=== PATIENT | female | born 1975 | race American Indian/Alaskan Native ===

== ENCOUNTER 2018-03-27 11:01 | Outpatient (CLI) | payer OTHER ==
--- NOTE | 2018-03-27 13:04 | Mammography Report ---
BILATERAL MAMMOGRAM: FINDINGS: Baseline examination. The breast tissue is heterogeneously dense, which could obscure detection of small masses (approximately 50%-75% glandular). No mass, distortion, suspicious calcification, or skin change is seen. CAD was utilized. IMPRESSION: Negative mammogram. There is no mammographic evidence of malignancy. RECOMMENDATION: Follow-up per ACS guidelines. BI-RADS CATEGORY: 1 = Negative ACR BI-RADS MAMMOGRAPHIC CODES: 0 = Needs additional imaging evaluation; 1 = Negative; 2 = Benign; 3 = Probably benign; 4 = Suspicious; 5 = Malignant; 6 = Known biopsy-proven malignancy COMMENT: 1. Dense breast tissue, i.e., adenosis, fibrocystic changes, etc., may obscure an underlying neoplasm. 2. Approximately 10% of cancers are not detected with mammography. 3. A negative mammography report should not delay biopsy if a clinically suspicious mass is present. COMMENT: Patient follow-up letters are generated in [employer].
== END 2018-03-27 11:02 | disposition home or self-care (01) ==
LOC: MAMMO 11:01
PROVIDERS: ATTEND Nurse Practitioner Family
DX: Z12.31 Encounter for screening mammogram for malignant neoplasm of breast (principal)
CPT/HCPCS: 77067

== ENCOUNTER 2019-06-10 09:45 | Outpatient (CLI) | payer OTHER ==
--- NOTE | 2019-06-10 14:39 | Mammography Report ---
DIGITAL SCREENING MAMMOGRAM WITH CAD, 06/10/2019 INDICATION: Routine screening mammography. TECHNIQUE: Digital bilateral 2D mammography was obtained in the craniocaudal and mediolateral obliq ue projections. This examination was interpreted with the benefit of Computer-Aided Detection analysi s. COMPARISON: 03/27/2018 FINDINGS: Breast Density: The breasts are heterogeneously dense, which may obscure small masses. A right inner focal asymmetry requires additional imaging. No architectural distortion or suspicious calcifications. There is no evidence of dominant mass, suspicious calcifications or architectural dis tortion in the left breast. IMPRESSION: Right asymmetry requiring additional imaging. Recommend recall for right lateral medial a nd spot compression MLO and CC views and right breast ultrasound if needed. Follow up recommendation: Special View: Spot Category 0: Incomplete. Needs additional imaging evaluation and/or prior mammograms for comparison. A "normal" or negative report should not discourage follow up or biopsy of a clinically significant f inding. A written summary of these findings will be mailed to the patient. The patient will be entered into a mammography reporting system which will generate a reminder letter for the patient's next appointmen t at the appropriate interval. The [employer] recommends yearly mammograms starting at age 40 and continuing as l cat as a woman is in good health. Breast MRI is recommended for women with an approximate 20-25% or greater lifetime risk of breast cancer, including women with a strong family history of breast or ova kim cancer or who have been treated for Hodgkin's disease. Signer Name: Danielito Sparks MD Signed: 06/10/2019 2:34 PM Workstation Name: [id number]
== END 2019-06-10 09:46 | disposition home or self-care (01) ==
LOC: MAMMO 09:45
PROVIDERS: ATTEND Pediatrics
DX: Z12.31 Encounter for screening mammogram for malignant neoplasm of breast (principal)
CPT/HCPCS: 77067

== ENCOUNTER 2019-07-09 10:26 | Outpatient (CLI) | payer OTHER ==
--- NOTE | 2019-07-09 11:13 | Mammography Report ---
DIGITAL RIGHT DIAGNOSTIC MAMMOGRAM WITH CAD, 07/09/2019 INDICATION: R92.8 RT BREAST TECHNIQUE: Digital right mammographic imaging was performed. Spot compression views were obtained. This examination was interpreted with the benefit of Computer-aided Detection analysis. COMPARISON: 06/10/2019 Breast Density: The breasts are heterogeneously dense, which may obscure small masses. FINDINGS: Lateral and spot compression MLO and CC views were performed and are negative. Satisfactory effacement of asymmetries. IMPRESSION: No mammographic evidence of malignancy. Follow up recommendation: Routine BI-RADS Category 1: Negative. A "normal" or negative report should not discourage follow up or biopsy of a clinically significant f inding. A written summary of these findings will be mailed to the patient. The patient will be entered into a mammography reporting system which will generate a reminder letter for the patient's next appointmen t at the appropriate interval. According to the [employer], yearly mammograms are recommended starting at age 40 and continuing as long as a woman is in good health. Breast MRI is recommended for women with an catrina roximately 20-25% or greater lifetime risk of breast cancer, including women with a strong family his tory of breast or ovarian cancer and women who have been treated for Hodgkin's disease. Signer Name: Danielito Sparks MD Signed: 07/09/2019 11:09 AM Workstation Name: [id number]
== END 2019-07-09 10:27 | disposition home or self-care (01) ==
LOC: MAMMO 10:26
PROVIDERS: ATTEND Pediatrics
DX: R92.8 Other abnormal and inconclusive findings on diagnostic imaging of breast (principal)

== ENCOUNTER 2021-11-08 08:45 | Inpatient (IN) | payer OTHER ==
[2021-11-08] MEDS ORDERED: LACTATED RINGERS 1,000 ML ONE (09:53)
--- NOTE | 2021-11-08 10:44 | History and Physical Report ---
History of Present Illness Date of examination: 11/08/21 Date of admission: 11/08/21 08:45 Chief complaint: scheduled History of present illness: at 39.1wks by LMP c/w [facility]. Pt desires no future fertility but did not sign tubal papers. Pt admits to movement, denies vag bleed or LOF or headache. pt admits to feeling ctx but declines epidural at this item. Pt has GDM this preg controlled with diet only. labs with B+, neg screen, Rubella immune, HepBsAg, HIV and VDRL neg. GBS+ Past History Past Medical History: no pertinent history Past Surgical History: no surgical history [employer] History: other (SAB x2) Social history: no significant social history - Obstetrical History Expected Date of Delivery: 11/14/21 Actual Gestation: 39 Week(s) 1 Day(s) : 5 Hx # Term Pregnancies: 2 Spontaneous Abortions: 2 Number of Living Children: 2 Medications and Allergies Allergies Allergy/AdvReac Type Severity Reaction Status Date / Time No Known Allergies Allergy Unverified 06/10/19 09:45 Review of Systems All systems: negative (ctx) - Vital Signs Vital signs: Vital Signs Temp Pulse Pulse Ox 98.1 F 88 88 11/08/21 09:21 11/08/21 09:21 11/08/21 09:21 Temp Pulse Resp BP Pulse Ox 98.1 F 87 112/73 98 11/08/21 09:21 11/08/21 10:42 11/08/21 09:22 11/08/21 10:42 - Physical Exam Breasts: Positive: deferred Cardiovascular: Regular rate Lungs: Positive: Normal air movement Abdomen: Positive: soft (non-tender, gravid) Genitourinary (Female): Positive: normal external genitalia Vagina: Positive: normal moisture Uterus: Positive: enlarged (non-tender gravid) - Obstetrical FHR: category 1 Uterine Contraction Monitor Mode: External Cervical Dilatation: 1.5 Cervical Effacement Percentage: 30 station: -2 Uterine Contraction Pattern: Irregular Uterine Contraction Intensity: Mild Results All other labs normal. Assessment and Plan Term preg with GDMA1 controlled with diet only, here for induction of labor, now latent 1. Admit to labor and delivery, and do labs, including CMP, and hgb A1c 2. accucheck and will do every hr when in active labor 3. May have 2000cal diet now and then cervidil induction 4. Amp for GBS+ to start after pt is 4cm dilated 5. Pt told that permanent sterilization will be arranged at a later date post delivery because she did not sign consents nor make arrangements with this hospital to have the procedure done. plan of care discussed with pt with FOB to bedside, all questions encouraged and answered
[2021-11-08] MEDS ORDERED: AMPICILLIN/NS 2 GM/100 ML 2 GM/100 ML BAG IV SCH (11:00)
[2021-11-08] MEDS ORDERED: CARBOPROST TROMETHAMINE 250 MCG/1 ML INJ IM PRN (11:00)
[2021-11-08] MEDS ORDERED: ePHEDrine SULFATE 50 MG/1 ML INJ IV PRN (11:00)
[2021-11-08] MEDS ORDERED: DINOPROSTONE 10 MG VAG SUPP VG SCH (11:00)
[2021-11-08] MEDS ORDERED: METHYLERGONOVINE MALEATE 0.2 MG/ML VIAL IM PRN (11:00)
[2021-11-08] MEDS ORDERED: fentaNYL 100 MCG/2 ML INJ IV PRN (11:00)
[2021-11-08] MEDS ORDERED: ONDANSETRON 4 MG/2 ML INJ IV PRN (11:00)
[2021-11-08] MEDS ORDERED: miSOPROStol 200 MCG TAB PR PRN (11:00)
[2021-11-08] MEDS ORDERED: OXYTOCIN 10 UNIT/1 ML INJ IM PRN (11:00)
[2021-11-08] MEDS ORDERED: MINERAL OIL 30 ML ORAL LIQD PO PRN (11:00)
[2021-11-08] MEDS ORDERED: NalbUPHINE 10 MG/1 ML INJ IV PRN (11:00)
[2021-11-08] MEDS ORDERED: ACETAMINOPHEN 325 MG TAB PO PRN (11:00)
[2021-11-08] MEDS ORDERED: LOPERAMIDE 2 MG CAP PO PRN (11:00)
[2021-11-08] MEDS ORDERED: LIDOCAINE (2%) 20 MG/1 ML VIAL 20 ML MDV INFILTRATI SCH (11:00)
[2021-11-08] MEDS ORDERED: TERBUTALINE 1 MG/1 ML INJ SUB-Q PRN (11:00)
[2021-11-08] MEDS ORDERED: OXYTOCIN DRIP 30 UNITS/500 ML BAG IV SCH (11:00)
[2021-11-08] MEDS ORDERED: PROMETHAZINE 25 MG TAB PO PRN (11:00)
[2021-11-08 11:07] LABS: Hematocrit 37.8 % (30.3-42.9); Hemoglobin 13.2 gm/dl (10.1-14.3); Mean Corpuscular HGB Conc 35 % (30-34); Mean Corpuscular Volume 84 fl (79-97); Platelet Count 151 K/mm3 (140-440); Red Blood Count 4.52 M/mm3 (3.65-5.03); Red Cell Distribution Width 14.4 % (13.2-15.2)
[2021-11-08 11:30] LABS: Alanine Aminotransferase 9 units/L (7-56); Albumin 3.4 g/dL (3.9-5); Blood Urea Nitrogen 10 mg/dL (7-17); Calcium 9.2 mg/dL (8.4-10.2); Hemolysis Index 13
[2021-11-08 11:33] LABS: BUN/Creatinine Ratio 20
[2021-11-08] MEDS: LACTATED RINGERS 1,000 ML IV SCH (18:25)
[2021-11-08] MEDS ORDERED: PENICILLIN G POTASSIUM 5 MIL.UNITS in SODIUM CHLORIDE 0.9% 50 ML IV ONE (21:38)
[2021-11-08 21:47] LABS: Uric Acid 5.4 mg/dL (3.5-7.6)
[2021-11-08] MEDS ORDERED: INSULIN GLARGINE 100 UNITS/ML SUB-Q SCH (22:00)
[2021-11-08] MEDS ORDERED: PENICILLIN G POTASSIUM 5 MIL.UNITS in SODIUM CHLORIDE 0.9% 100 ML IV ONE (22:00)
[2021-11-08 23:29] LABS: Creatinine,Urine 25.8 mg/dL (0.1-20.0)
--- NOTE | 2021-11-09 00:13 | Ultrasound Report ---
US OB follow up INDICATION / CLINICAL INFORMATION: Gestational diabetes, poorly controlled COMPARISON: None available. TECHNIQUE: Using a transcutaneous probe, multiple grayscale, color Doppler, and spectral Doppler imag es of the uterus and fetus were captured and stored. FINDINGS: Based on last menstrual period of 02/07/2021, estimated clinical gestational age is 39 weeks 1 day. A single cephalic fetus with heart rate of 152 bpm is demonstrated. The anterior/right lateral placenta is grade 2 and demonstrates unremarkable margins. The amniotic fluid index is within normal limits measuring 8.7 cm. Biparietal Diameter = 8.8 cm = 35, 5 weeks, days Head Circumference = 32.0 cm = 36, 1 weeks, days Abdominal Circumference = 34.3 cm = 38, 1 weeks, days Femur Length = 7.5 cm = 38, 2 weeks, days Average Ultrasound Age (AUA) = 37, 1 weeks, days. EDC 11/28/2021. Estimated weight is 3264 g. IMPRESSION: 1. Single intrauterine fetus with heart rate of 152 bpm and estimated composite gestational age of 37 weeks 1 day. EDC 11/28/2021. Signer Name: Tre Das II, MD Signed: 11/09/2021 12:09 AM Workstation Name: [id number]
[2021-11-09] MEDS ORDERED: miSOPROStol 25 MCG TAB PO SCH ×2 (01:48→10:30)
[2021-11-09] MEDS: miSOPROStol 25 MCG TAB PO SCH ×2 (01:55→06:13)
[2021-11-09] MEDS ORDERED: PENICILLIN G POTASSIUM 2.5 MIL.UNITS in SODIUM CHLORIDE 0.9% 50 ML IV SCH (02:00)
--- NOTE | 2021-11-09 07:05 | Event Note ---
Date: 11/09/21 CC: IOL for GDMA1 HPI: 46 y/o at 39-2/7 weeks is undergoing IOL secondary to GDMA1. For cervical ripening, she is S/P Cervidil x1 and Cytotec 25 mcg PO x2. O: Accucheck= 72 EFM= category 1 TOCO= q 7 min SVE= 1-2/30%/-2. LABS: HgBA1c= 6.1 UPCR= WNL RAD: OB US Limited= SLIUP. Vertex. Anterior placenta. EFW= 3264 g (34th %-ile). SMITHA= 8.7 cm. IMP: 1.) 39 weeks 2.) GDMA1 3.) GBS (+) 4.) AMA 5.) IOL 6.) Isolated elevated BP, R/O pre-eclampsia PLAN: 1.) Accuchecks are within range now after Lantus 20 u SQ x1 last night. Accuch ecks q 6 hours now, and q 1 hour in active labor. 2.) PCN for GBS prophylaxis ordered in active labor. 3.) Continue Cytotec PO for 2 more doses to ripen cervix, but increase the dose to 50 mcg. 4.) Consider Cook's catheter. 5.) Pre-eclampsia is ruled-out at this time.
[2021-11-09] MEDS: LACTATED RINGERS 1,000 ML IV SCH (10:16)
--- NOTE | 2021-11-09 12:52 | Progress Note ---
Assessment and Plan A: IUP @ 39 2/7 Weeks Category I Tracing AMA GDM A1 Maternal Obesity GBS Positive P: AROM Internals x 2 Continue Pitocin Augmentation Continue GBS prophylaxis Continue Accuchecks as ordered Subjective - Subjective Date of service: 11/09/21 Patient reports: movement normal, contractions Objective - Vital Signs Vital Signs: Vital Signs - 12hr 11/09/21 11/09/21 11/09/21 00:49 00:54 00:59 Temperature Pulse Rate 80 81 89 Blood Pressure O2 Sat by Pulse 99 100 100 Oximetry O2 Sat by Pulse Oximetry [ Bilateral] 11/09/21 11/09/21 11/09/21 01:04 01:09 01:14 Temperature Pulse Rate 79 78 88 Blood Pressure O2 Sat by Pulse 99 98 99 Oximetry O2 Sat by Pulse Oximetry [ Bilateral] 11/09/21 11/09/21 11/09/21 01:19 01:24 01:29 Temperature Pulse Rate 94 H 79 83 Blood Pressure O2 Sat by Pulse 100 100 100 Oximetry O2 Sat by Pulse Oximetry [ Bilateral] 11/09/21 11/09/21 11/09/21 01:34 01:39 01:44 Temperature Pulse Rate 77 76 76 Blood Pressure O2 Sat by Pulse 99 99 100 Oximetry O2 Sat by Pulse Oximetry [ Bilateral] 11/09/21 11/09/21 11/09/21 01:49 01:54 02:08 Temperature Pulse Rate 81 78 76 Blood Pressure 130/62 O2 Sat by Pulse 99 100 Oximetry O2 Sat by Pulse Oximetry [ Bilateral] 11/09/21 11/09/21 11/09/21 03:30 04:11 04:16 Temperature 98.7 F Pulse Rate 80 76 Blood Pressure O2 Sat by Pulse 100 100 Oximetry O2 Sat by Pulse Oximetry [ Bilateral] 11/09/21 11/09/21 11/09/21 04:21 04:26 04:31 Temperature Pulse Rate 86 82 87 Blood Pressure O2 Sat by Pulse 100 100 99 Oximetry O2 Sat by Pulse Oximetry [ Bilateral] 11/09/21 11/09/21 11/09/21 04:36 07:02 09:05 Temperature Pulse Rate 83 64 71 Blood Pressure 114/59 109/58 O2 Sat by Pulse 99 Oximetry O2 Sat by Pulse Oximetry [ Bilateral] 03/09/22 03/09/22 03/09/22 09:07 09:12 09:17 Temperature Pulse Rate 97 H 82 92 H Blood Pressure O2 Sat by Pulse 100 100 100 Oximetry O2 Sat by Pulse Oximetry [ Bilateral] 11/09/21 11/09/21 11/09/21 09:22 09:27 09:32 Temperature Pulse Rate 89 97 H 83 Blood Pressure O2 Sat by Pulse 100 99 99 Oximetry O2 Sat by Pulse Oximetry [ Bilateral] 11/09/21 11/09/21 11/09/21 09:37 09:38 09:42 Temperature Pulse Rate 81 83 85 Blood Pressure 116/60 O2 Sat by Pulse 99 100 Oximetry O2 Sat by Pulse 99 Oximetry [ Bilateral] 11/09/21 11/09/21 11/09/21 09:47 09:50 09:52 Temperature 98.3 F Pulse Rate 74 91 H Blood Pressure O2 Sat by Pulse 99 100 Oximetry O2 Sat by Pulse Oximetry [ Bilateral] 11/09/21 11/09/21 11/09/21 09:57 10:02 10:07 Temperature Pulse Rate 88 83 72 Blood Pressure O2 Sat by Pulse 100 100 100 Oximetry O2 Sat by Pulse Oximetry [ Bilateral] 11/09/21 11/09/21 11/09/21 10:08 10:12 10:17 Temperature Pulse Rate 77 83 79 Blood Pressure 108/66 O2 Sat by Pulse 100 100 Oximetry O2 Sat by Pulse Oximetry [ Bilateral] 11/09/21 11/09/21 11/09/21 10:22 10:27 10:38 Temperature Pulse Rate 73 81 80 Blood Pressure O2 Sat by Pulse 100 99 99 Oximetry O2 Sat by Pulse Oximetry [ Bilateral] 11/09/21 11/09/21 11/09/21 10:39 10:43 10:48 Temperature Pulse Rate 75 84 80 Blood Pressure 119/59 O2 Sat by Pulse 100 100 Oximetry O2 Sat by Pulse Oximetry [ Bilateral] 11/09/21 11/09/21 11/09/21 10:53 10:58 11:03 Temperature Pulse Rate 75 92 H 77 Blood Pressure O2 Sat by Pulse 98 100 99 Oximetry O2 Sat by Pulse Oximetry [ Bilateral] 11/09/21 11/09/21 11/09/21 11:08 11:13 11:18 Temperature Pulse Rate 89 79 78 Blood Pressure 99/56 O2 Sat by Pulse 100 99 100 Oximetry O2 Sat by Pulse Oximetry [ Bilateral] 11/09/21 11/09/21 11/09/21 11:23 11:28 11:33 Temperature Pulse Rate 77 79 83 Blood Pressure O2 Sat by Pulse 100 100 99 Oximetry O2 Sat by Pulse Oximetry [ Bilateral] 11/09/21 11/09/21 11/09/21 11:38 11:43 11:48 Temperature Pulse Rate 79 91 H 75 Blood Pressure 108/67 O2 Sat by Pulse 100 100 99 Oximetry O2 Sat by Pulse Oximetry [ Bilateral] 11/09/21 11/09/21 11/09/21 11:53 11:58 12:03 Temperature Pulse Rate 94 H 84 81 Blood Pressure O2 Sat by Pulse 100 100 100 Oximetry O2 Sat by Pulse Oximetry [ Bilateral] 11/09/21 11/09/21 11/09/21 12:08 12:09 12:13 Temperature Pulse Rate 95 H 99 H 100 H Blood Pressure 117/70 O2 Sat by Pulse 100 99 Oximetry O2 Sat by Pulse Oximetry [ Bilateral] 11/09/21 11/09/21 11/09/21 12:18 12:23 12:28 Temperature Pulse Rate 92 H 89 87 Blood Pressure O2 Sat by Pulse 99 99 100 Oximetry O2 Sat by Pulse Oximetry [ Bilateral] 11/09/21 11/09/21 11/09/21 12:33 12:38 12:43 Temperature Pulse Rate 81 84 80 Blood Pressure 113/62 O2 Sat by Pulse 100 100 100 Oximetry O2 Sat by Pulse Oximetry [ Bilateral] - Exam Breasts: normal Cardiovascular: Regular rate Lungs: Clear to auscultation, Normal air movement Abdomen: Present: normal appearance, soft, normal bowel sounds Uterus: Present: normal, firm, fundal height above umbilicus FHR: category 1 Uterine Contraction Monitor Mode: Internal Cervical Dilatation: 4 (Moderate amount of blood tinged fluids at 1229) Cervical Effacement Percentage: 60 station: -2 Uterine Contraction Pattern: Regular Uterine Tone Measurement Phase: Resting Uterine Contraction Intensity: Moderate Extremities: normal - Labs Labs: Abnormal Labs 11/08/21 11/08/21 11/08/21 10:41 10:41 10:41 MCHC 35 H Sodium 135 L Carbon Dioxide 18 L Creatinine 0.5 L Glucose 102 H POC Glucose Hemoglobin A1c 6.1 H Alkaline Phosphatase 243 H Total Protein 6.2 L Albumin 3.4 L Urine Creatinine Urine Total Protein 11/08/21 11/08/21 11/09/21 18:27 22:50 00:06 MCHC Sodium Carbon Dioxide Creatinine Glucose POC Glucose 63 L 145 H Hemoglobin A1c Alkaline Phosphatase Total Protein Albumin Urine Creatinine 25.8 H Urine Total Protein 4 L Laboratory Results - last 24 hr 11/08/21 11/08/21 11/08/21 10:41 10:41 12:22 POC Glucose Uric Acid 5.4 Lactate Dehydrogenase 176 Urine Creatinine Urine Total Protein Syphilis IgG/IgM Ab Nonreactive SARS-CoV-2 (PCR) Negative 11/08/21 11/08/21 11/08/21 14:38 18:27 22:50 POC Glucose 90 63 L Uric Acid Lactate Dehydrogenase Urine Creatinine 25.8 H Urine Total Protein 4 L Syphilis IgG/IgM Ab SARS-CoV-2 (PCR) 11/09/21 11/09/21 11/09/21 00:06 06:07 11:59 POC Glucose 145 H 72 91 Uric Acid Lactate Dehydrogenase Urine Creatinine Urine Total Protein Syphilis IgG/IgM Ab SARS-CoV-2 (PCR)
[2021-11-09] MEDS ORDERED: AMPICILLIN/NS 2 GM/100 ML 0 GM/0 ML BAG IV ONE (12:58)
--- NOTE | 2021-11-09 13:27 | Anesthesia Consultation ---
Anesthesia Consult and Med Hx Date of service: 11/09/21 - Airway Anesthetic Teeth Evaluation: Good ROM Head & Neck: Adequate Mental/Hyoid Distance: Adequate Mallampati Class: Class II Intubation Access Assessment: Probably Good - Pulmonary Exam CTA: Yes - Cardiac Exam Cardiac Exam: RRR - Pre-Operative Health Status ASA Pre-Surgery Classification: ASA3 Proposed Anesthetic Plan: Epidural - Pulmonary Hx Asthma: No COPD: No Hx Pneumonia: No - Cardiovascular System Hx Hypertension: No - Central Nervous System Hx Seizures: No Hx Psychiatric Problems: No - Endocrine Hx Renal Disease: No Hx End Stage Renal Disease: No Hx Non-Insulin Dependent Diabetes: Yes Hx Hypothyroidism: No Hx Hyperthyroidism: No - Hematic Hx Anemia: No Hx Sickle Cell Disease: No - Other Systems Hx Alcohol Use: Yes Hx Obesity: Yes
[2021-11-09] MEDS ORDERED: NALOXONE 2 MG/2 ML INJ IV PRN (13:30)
[2021-11-09] MEDS ORDERED: ePHEDrine SULFATE 50 MG/1 ML INJ IV PRN (13:30)
--- NOTE | 2021-11-09 13:43 | Progress Note ---
Labor Epidural - Labor Epidural Start Time: 13:35 Stop Time: 13:38 Performed by:: VIET VEGA Procedure: Patient is requesting epidural for labor pain. H&P, and labs reviewed. Procedure explained, questions answered, consent obtained. Patient in sitting position with blood pressure cuff and pulse ox on and working. Timeout performed immediately before start of procedure. Sterile Chloraprep prep/drape. 3 mL 1% lidocaine skin wheal at L[3]-L[4]. 17-gauge tuohy epidural needle advanced to [id number] with saline at [7] cm. 25-gauge spinal needle advanced until clear, free-flowing CSF. Intrathecal dexmedetomidine [5] mcg administered and needle removed. Epidural catheter advanced to [12] cm, negative aspiration for blood and csf, negative test dose 3 ml 1.5% lidocaine with epinephrine. Sterile sponge and tegaderm applied, followed by tape reinforcement. Patient tolerated procedure well. Jackson SRNA
[2021-11-09] MEDS ORDERED: fentaNYL-BUPIV 2 MCG/ML-0.125% 200 MCG/100 ML BAG EPIDURAL SCH (14:00)
[2021-11-09] MEDS ORDERED: HYDROCORTISONE 25 MG RECTAL SUPP PR PRN (18:06)
[2021-11-09] MEDS ORDERED: LANOLIN/ZINC/DIMETHICONE (LANSINOH) 7 GM TP PRN (18:06)
[2021-11-09] MEDS ORDERED: HYDROcodone/ACETAMINOPHEN 5-325 MG TAB PO PRN (18:06)
[2021-11-09] MEDS ORDERED: diphenhydrAMINE 25 MG CAP PO PRN (18:06)
[2021-11-09] MEDS ORDERED: BENZOCAINE/MENTHOL 20/0.5% TOP SPRAY 56 GM TP PRN (18:06)
[2021-11-09] MEDS ORDERED: PROMETHAZINE 25 MG TAB PO PRN (18:06)
[2021-11-09] MEDS ORDERED: MAGNESIUM HYDROXIDE (MOM) ORAL LIQD UDC PO PRN (18:06)
[2021-11-09] MEDS ORDERED: WITCH HAZEL/ GLYCERIN PAD TP PRN (18:06)
[2021-11-09 18:09] LABS: Cord Art Bld Carbxyhemoglobin 1.4; Cord Arterial Blood HCO3 26.9; Cord Arterial Oxyhemoglobin 38.4
[2021-11-09 18:17] LABS: Cord Venous Blood HCO3 24.2; Cord Venous Blood PO2 27.2; Cord Venous Oxyhemoglobin 60.4
--- NOTE | 2021-11-09 18:28 | Procedure Note ---
OB Delivery Note - Delivery Date of Delivery: 11/09/21 (1731) Surgeon: KASSANDRA SALAZAR Estimated blood loss: other (250) - Vaginal Delivery presentation: vertex Delivery position: OA Delivery induction: cervidil Delivery augmentation: rupture of membranes, pitocin Delivery monitor: internal FHT, internal uterine Route of delivery: Delivery placenta: spontaneous Delivery cord: nuchal cord, 3 umbilical vessels Episiotomy: none Delivery laceration: 1st degree Delivery repair: vicryl Anesthesia: epidural Delivery comments: of a live 8'3 female infant over 1st degree vaginal lacerations under epidural anesthesia with Apgars of 7 and 9 at 1731 on 11/09/2021. Tight nuchal x1 manually reduced on the perineum prior to delivery of the anterior shoulder. Cord double clamped and cut by AYAN Salazar, and infant placed on warmer to awaiting NICU team. Cord blood gasses collected x 2. Spontaneous delivery of placenta complete and intact with Mason side presenting at 1736. Fundus is firm and midline located 4 below the U. Lochia is scant. Vaginal lacerations repaired with 2-0 Vicryl on a . GBS prophylaxis x 1. - Infant A at 1 minute: 7 at 5 minutes: 9 Gender: Female (8'3)
[2021-11-10] MEDS: IBUPROFEN 800 MG TAB PO SCH ×4 (01:00→23:40)
[2021-11-10 06:13] LABS: Hematocrit 34.5 % (30.3-42.9)
[2021-11-10] MEDS: PRENATAL VIT27-FE FUMARATE-FOLIC ACID VIT TAB PO SCH (10:18)
--- NOTE | 2021-11-10 10:41 | Progress Note ---
Assessment and Plan A: S/P p: Continue routine pp orders D/C home tomm if stable Subjective - Subjective Date of service: 11/10/21 Principal diagnosis: s/p Patient reports: appetite normal, voiding normally, pain well controlled, am bulating normally [place]: doing well, bottle feeding Objective - Vital Signs Latest vital signs: Vital Signs Temp Pulse Resp BP BP Pulse Ox Pulse Ox 11/10/21 10:16 20 11/10/21 08:00 100 11/10/21 07:54 98.4 F 83 18 125/83 100 11/10/21 04:41 97.9 F 75 20 125/70 99 11/10/21 03:03 20 11/10/21 01:29 98.4 F 72 20 144/80 100 11/09/21 21:05 100 11/09/21 21:00 98.4 F 72 18 112/67 100 11/09/21 20:43 69 100 11/09/21 20:38 66 100 11/09/21 20:33 65 100 11/09/21 20:28 68 100 11/09/21 20:23 92 H 100 11/09/21 20:18 66 100 11/09/21 20:13 71 100 11/09/21 20:08 67 100 11/09/21 20:03 77 100 11/09/21 19:58 67 100 11/09/21 19:53 68 100 11/09/21 19:48 69 99 11/09/21 19:43 68 100 11/09/21 19:38 66 100 11/09/21 19:33 73 100 11/09/21 19:28 74 99 11/09/21 19:27 70 110/71 11/09/21 19:26 100 11/09/21 19:23 85 100 11/09/21 19:18 71 100 11/09/21 19:13 72 100 11/09/21 19:08 68 100 11/09/21 19:03 79 97 11/09/21 18:59 75 70 L 11/09/21 18:58 88 98 11/09/21 18:53 97.9 F 74 100 11/09/21 18:48 73 119/74 100 11/09/21 18:43 66 100 11/09/21 18:38 81 100 11/09/21 18:34 75 16 136/65 99 11/09/21 18:33 81 99 11/09/21 18:32 74 92 11/09/21 18:28 78 100 11/09/21 18:26 76 94 11/09/21 18:23 80 100 11/09/21 18:20 73 94 11/09/21 18:18 75 136/65 99 11/09/21 18:13 73 100 11/09/21 18:10 77 94 11/09/21 18:08 69 100 11/09/21 18:05 77 120/71 11/09/21 18:03 88 98 11/09/21 17:58 78 99 11/09/21 17:53 73 100 11/09/21 17:48 74 100 11/09/21 17:43 70 98 11/09/21 17:38 71 100 11/09/21 17:33 74 100 11/09/21 17:28 73 100 11/09/21 17:23 75 100 11/09/21 17:18 67 100 11/09/21 17:14 60 100/54 11/09/21 17:13 66 100 11/09/21 17:08 70 100 11/09/21 17:03 62 100 11/09/21 16:58 62 100 11/09/21 16:53 78 100 11/09/21 16:48 62 100 11/09/21 16:43 70 100 11/09/21 16:42 63 104/54 11/09/21 16:38 62 100 11/09/21 16:33 63 100 11/09/21 16:28 70 100 11/09/21 16:23 69 100 11/09/21 16:18 70 100 11/09/21 16:13 66 100 11/09/21 16:12 66 115/63 11/09/21 16:08 72 100 11/09/21 16:03 78 100 11/09/21 15:58 92 H 94 11/09/21 15:57 90 76 L 11/09/21 15:53 74 100 11/09/21 15:48 67 100 11/09/21 15:43 67 135/65 100 11/09/21 15:38 69 100 11/09/21 15:33 79 95/50 100 11/09/21 15:28 65 100 11/09/21 15:23 67 100 11/09/21 15:18 71 100 11/09/21 15:13 70 100 11/09/21 15:11 72 97/52 11/09/21 15:08 64 100 11/09/21 15:03 68 100 11/09/21 15:02 74 101/56 11/09/21 14:58 71 100 11/09/21 14:53 81 100 11/09/21 14:48 69 100 11/09/21 14:43 80 100 11/09/21 14:42 71 122/69 11/09/21 14:38 86 100 11/09/21 14:33 78 100 11/09/21 14:28 71 100 11/09/21 14:23 72 100 11/09/21 14:18 89 100 11/09/21 14:13 94 H 100 11/09/21 14:11 98.2 F 11/09/21 14:08 91 H 100 11/09/21 14:07 75 120/65 11/09/21 14:03 101 H 100 11/09/21 14:01 69 117/63 11/09/21 13:58 83 99 11/09/21 13:56 105 H 105/60 11/09/21 13:53 86 100 11/09/21 13:51 88 105/65 11/09/21 13:48 69 100 11/09/21 13:47 71 117/68 11/09/21 13:43 88 100 11/09/21 13:41 80 112/61 11/09/21 13:38 72 100 11/09/21 13:36 80 114/60 11/09/21 13:33 89 100 11/09/21 13:32 86 119/61 11/09/21 13:28 91 H 100 11/09/21 13:27 101 H 94/76 88 11/09/21 13:23 93 H 100 11/09/21 13:18 83 100 11/09/21 13:13 87 100 11/09/21 13:08 97 H 100 11/09/21 13:07 80 109/65 11/09/21 13:03 94 H 100 11/09/21 12:58 87 100 11/09/21 12:53 90 100 11/09/21 12:48 89 99 11/09/21 12:43 80 100 11/09/21 12:38 84 113/62 100 11/09/21 12:33 81 100 11/09/21 12:28 87 100 11/09/21 12:23 89 99 11/09/21 12:18 92 H 99 11/09/21 12:13 100 H 99 11/09/21 12:09 99 H 117/70 11/09/21 12:08 95 H 100 11/09/21 12:03 81 100 11/09/21 11:58 84 100 11/09/21 11:53 94 H 100 11/09/21 11:48 75 99 11/09/21 11:43 91 H 100 11/09/21 11:38 79 108/67 100 11/09/21 11:33 83 99 11/09/21 11:28 79 100 11/09/21 11:23 77 100 11/09/21 11:18 78 100 11/09/21 11:13 79 99 11/09/21 11:08 89 99/56 100 11/09/21 11:03 77 99 11/09/21 10:58 92 H 100 11/09/21 10:53 75 98 11/09/21 10:48 80 100 11/09/21 10:43 84 100 11/09/21 10:39 75 119/59 11/09/21 10:38 80 99 Intake and Output 11/09/21 11/10/21 11/10/21 22:59 06:59 14:59 Intake Total 9.8 120 Output Total 1500 1600 Balance -1490.2 -1480 Intake: IV 9.8 PITOCin/NS 30 UNIT/500ML 9.8 30 units In 500 ml @ 40 mls/hr IV TITR BETSY Rx#: [id number] Oral 120 Output: Urine 1500 1600 Indwelling Catheter 1500 Void 1600 Other: Total, Intake Amount 120 Total, Output Amount 1200 400 # Voids Indwelling Catheter 1 Void 1 Estimated Blood Loss 250 - Exam Breasts: Present: normal Abdomen: Present: normal appearance, soft, normal bowel sounds Vulva: both: normal Uterus: Present: normal, firm, fundal height below umbilicus Extremities: Present: normal Incision: Present: normal, intact
--- NOTE | 2021-11-10 10:47 | Discharge Summary ---
Providers - Providers Date of Admission: 11/08/21 08:45 Date of discharge: 11/11/21 Attending physician: TAMMY PABON Primary care physician: AMAN PALM Hospitalization Reason for admission: induction of labor Delivery: Episiotomy: none Laceration: 1st degree Incision: normal, intact Other procedures: none complications: none Discharge diagnosis: IUP at term delivered [place] baby: female Hospital course: Pt was admitted to [facility] for a scheduled IOL. She had a w/o pp complications. See H&P, delivery summary, and pp notes. Condition at discharge: Stable Disposition: HOME / SELF CARE / HOMELESS Plan - Discharge Medications Prescriptions: Ibuprofen [Motrin 800 MG tab] 800 mg PO Q6H PRN #30 tablet PRN Reason: Pain, Mild (1-3) - Provider Discharge Summary Activity: routine, no sex for 6 weeks, no heavy lifting 4 weeks, no strenuous exercise Diet: other (low carb low sugar) Instructions: routine Additional instructions: [] Smoking cessation referral if applicable(refer to patient education folder for contact #) [] Refer to [facility] Booklet Call your doctor immediately for: * Fever > 100.5 * Heavy vaginal bleeding ( >1 pad per hour) * Severe persistent headache * Shortness of breath * Reddened, hot, painful area to leg or breast * Drainage or odor from incision. * Keep incision clean and dry at all times and follow doctor's instructions regarding bathing/showering - Follow up plan Follow up: AMAN PALM MD [Primary Care Provider] - 6 Weeks
--- NOTE | 2021-11-10 10:55 | Post Anesthesia Evaluation ---
- Post Anesthesia Evaluation Patient Participated: Yes Airway Patent: Yes Stable Respiratory Function: Yes Nausea/Vomiting: No Temp > 96.8F: Yes Pain Manageable: Yes Adequeate Hydration: Yes Anesthesia Complications: No Block Receding Appropriately: Yes
[2021-11-11] MEDS: IBUPROFEN 800 MG TAB PO SCH ×3 (05:35→12:10)
[2021-11-11] MEDS: PRENATAL VIT27-FE FUMARATE-FOLIC ACID VIT TAB PO SCH (10:32)
[2021-11-11] MEDS ORDERED: FLU VACC QUAD 2021-22(6MOS UP)/PF 60 MCG/0.5 ML SYRINGE IM ONE (16:00)
[2021-11-11 21:00] VITALS: BP 140/88
== END 2021-11-11 20:30 | disposition home or self-care (01) | DRG 807 ==
LOC: LD 08:45 → OB 11-09 20:55
PROVIDERS: ADMIT Obstetrics & Gynecology; ATTEND Obstetrics & Gynecology
PROC: 10E0XZZ Delivery of Products of Conception, External Approach (ICD-10-PCS; principal; 2021-11-09)
PROC: 3E0R3BZ Introduction of Anesthetic Agent into Spinal Canal, Percutaneous Approach (ICD-10-PCS; 2021-11-09)
PROC: 00HU33Z Insertion of Infusion Device into Spinal Canal, Percutaneous Approach (ICD-10-PCS; 2021-11-09)
PROC: 0HQ9XZZ Repair Perineum Skin, External Approach (ICD-10-PCS; 2021-11-09)
PROC: 10907ZC Drainage of Amniotic Fluid, Therapeutic from Products of Conception, Via Natural or Artificial Opening (ICD-10-PCS; 2021-11-09)
DX: O24.420 Gestational diabetes mellitus in childbirth, diet controlled (principal); Z37.0 Single live birth; O99.824 Streptococcus B carrier state complicating childbirth; O99.214 Obesity complicating childbirth; O69.1XX0 Labor and delivery complicated by cord around neck, with compression, not applicable or unspecified; O70.0 First degree perineal laceration during delivery; Z3A.39 39 weeks gestation of pregnancy; Z20.822 Contact with and (suspected) exposure to COVID-19
CPT/HCPCS: 36415; 76816; 80053; 82570; 82803; 82962; 83036; 83615; 84156; 84550; 85014; 85018; 85027; 86592; 86850; 86900; 86901; 90686; 99211; G0378; J3490; G0463; J1815; J2540; J2590; J3010; J7120; U0003